=== PATIENT | female | born 1990 | race Caucasian/White ===

== ENCOUNTER 2024-10-16 14:25 | Emergency (ER) | payer MEDICAID, OTHER ==
[~2024-10-16] VITALS: Ht 167.6 cm; Wt 77.1 kg
[2024-10-16 14:52] VITALS: BP 125/78; TEMP 98.2; O2SAT 98
== END 2024-10-16 16:47 | disposition left against medical advice (07) ==
LOC: ER 14:52
DX: M25.541 Pain in joints of right hand (principal)
CPT/HCPCS: 73130-TC